=== PATIENT | female | born 1985 | race Caucasian/White ===

== ENCOUNTER 2019-07-03 12:23 | Emergency (ER) | payer BC ==
[2019-07-03] MEDS ORDERED: Metoclopramide HCl 10 MG/2 ML VIAL ONE (13:15)
[2019-07-03] MEDS ORDERED: Ketorolac Tromethamine 30 MG/ML VIAL ONE (13:15)
[2019-07-03] MEDS ORDERED: diphenhydrAMINE 50 MG/ML VIAL ONE (13:15)
--- NOTE | 2019-07-03 19:40 | CT ---
CT BRAIN WITHOUT CONTRAST: Date: 07-03-19 FINDINGS: A noncontrast CT was done for evaluation of a migraine headache with facial numbness. The ventricles are normal in size with no shift. No intracranial bleeding, mass or sign of acute stro ke was found. There is good cochran white distention. The visible paranasal sinuses and mastoid air cell s are clear. IMPRESSION: No acute intracranial findings. POS: HOME
== END 2019-07-03 14:10 | disposition home or self-care (01) ==
LOC: BURERS 12:23
DX: G43.809 Other migraine, not intractable, without status migrainosus (principal); I10 Essential (primary) hypertension; Z87.891 Personal history of nicotine dependence; Z79.899 Other long term (current) drug therapy
CPT/HCPCS: 70450; J1200; J1885; J2765